=== PATIENT | male | born 1985 | race Caucasian/White ===

== ENCOUNTER 2019-05-07 09:12 | Observation (INO) | payer MEDICAID ==
[2019-05-07] MEDS ORDERED: Lactated Ringers 1,000 ML IV ONE ×3 (09:22→12:42)
[2019-05-07] MEDS ORDERED: HYDROmorphone 1 MG/ML Syringe IVPUSH ONE ×2 (09:23→10:41)
[2019-05-07] MEDS ORDERED: Ondansetron 4 MG/2 ML SDV IV ONE ×2 (09:23→15:46)
[2019-05-07] MEDS ORDERED: Sodium Chloride 0.9% 10 ML Syringe FLUSH PRN (09:24)
[2019-05-07 09:53] LABS: ANION GAP 15.8; CHLORIDE,CL 101 mmol/L (101-111); SODIUM,NA 135 mmol/L (135-145)
[2019-05-07] MEDS ORDERED: Iopamidol 612 MG/ML 50 ML SDV IVPUSH ONE (11:16)
[2019-05-07] MEDS ORDERED: Iopamidol 612 MG/ML 100 ML Bottle IVPUSH ONE (11:16)
[2019-05-07] MEDS ORDERED: Benzocaine/Menthol 20%-0.5% Spray 56 GM Canister TOP ONE (15:32)
--- NOTE | 2019-05-07 15:37 | EDM.PDOC ---
ED HPI GENERAL MEDICAL PROBLEM - General Chief Complaint: Abdominal Pain Stated Complaint: SEVERE NAUSEA AND ABDOMINAL PAIN Time Seen by Provider: 05/07/19 09:20 Source of Information: Reports: Patient - History of Present Illness INITIAL COMMENTS - FREE TEXT/NARRATIVE: Otis is a 34 year old man who presents with 2 day history of nausea and vomiting as well as abdominal pain. He reports no particular meal that seems to have started this. He does report some mild fevers and chills today. He states he has had an episode like this previously, when he developed what sounds like a severe ileus that required hospitalization for a few days. He did not require surgery at that time. He has had no hematochezia, no melena Upper Abdomen Pain Score (Numeric/FACES): 10 - Related Data Allergies Allergy/AdvReac Type Severity Reaction Status Date / Time sulfamethoxazole Allergy Rash Verified 05/07/19 09:19 [From Bactrim] trimethoprim [From Bactrim] Allergy Rash Verified 05/07/19 09:19 Home Meds: Home Meds . [No Known Home Meds] 05/07/19 [History] Past Medical History HEENT History: Reports: None Cardiovascular History: Reports: None Respiratory History: Reports: None Gastrointestinal History: Reports: None Genitourinary History: Reports: None Musculoskeletal History: Reports: Other (See Below) Other Musculoskeletal History: sharpnel right shoulder, knee SOCRATES Neurological History: Reports: None Psychiatric History: Reports: None Endocrine/Metabolic History: Reports: None Hematologic History: Reports: None Immunologic History: Reports: None Oncologic (Cancer) History: Reports: None Dermatologic History: Reports: None - Infectious Disease History Infectious Disease History: Reports: None - Past Surgical History Head Surgeries/Procedures: Reports: None Social & Family History - Family History Family Medical History: Noncontributory - Tobacco Use Smoking Status *Q: Never Smoker Second Hand Smoke Exposure: No - Caffeine Use Caffeine Use: Reports: Coffee - Recreational Drug Use Recreational Drug Use: No ED ROS GENERAL - Review of Systems Review Of Systems: Comprehensive ROS is negative, except as noted in HPI. ED EXAM, GI/ABD - Physical Exam Exam: See Below Text/Narrative:: General: Otis is a 34 year old man who is obviously uncomfortable, but in no acute distress Ororpharynx is clear, mucous membranes are very dry Lungs: clear to ascultation throughout Abdomen: mildly distended, hypoactive bowel sounds heard in all four quadrants Peripheral IV was started, he received 1 liter fluid bolus as well as 0.5 mg hydromorphone. He did recieve good relief in pain from this. Over the next few hours, received a total of 3 liters LR before he was able to have any urine output. Flat and upright abdominal xray shows large amount of stool, as well as some air fluid levels CT scan was done, did not show any signs of obstruction, no transition point Course - Vital Signs Last Recorded V/S: Last Vital Signs Temp 36.6 C 05/08/19 08:00 Pulse 69 05/08/19 08:00 Resp 18 05/08/19 08:00 BP 128/71 05/08/19 08:00 Pulse Ox 96 05/08/19 08:00 - Orders/Labs/Meds Orders: Active Orders 24 hr Category Date Time Status Peripheral IV Insertion Adult [OM.PC] Routine Oth 05/07/19 09:24 Ordered Medication Orders Acetaminophen (Tylenol) 650 mg PO Q4H PRN PRN Reason: Pain (Mild 1-3)/fever Enoxaparin Sodium (Lovenox) 40 mg SUBCUT DAILY [facility] Lactated Ringer's (Ringers, Lactated) 1,000 mls @ 100 mls/hr IV ASDIRECTED [facility] Last Admin: 05/08/19 02:40 Dose: 100 mls/hr Infusion: 05/08/19 02:40 Dose: 100 mls/hr Admin: 05/07/19 16:58 Dose: 100 mls/hr Piperacillin Sod/Tazobactam (Sod 3.375 gm/ Sodium Chloride) 100 mls @ 200 mls/ hr IV Q6H [facility] Last Infusion: 05/08/19 07:30 Dose: 200 mls/hr Admin: 05/08/19 04:48 Dose: 200 mls/hr Infusion: 05/08/19 00:22 Dose: 200 mls/hr Admin: 05/07/19 23:46 Dose: 200 mls/hr Infusion: 05/07/19 18:57 Dose: 200 mls/hr Admin: 05/07/19 18:02 Dose: 200 mls/hr Vancomycin HCl 2 gm/ Premix 400 mls @ 200 mls/hr IV Q8H [facility] Last Infusion: 05/08/19 07:31 Dose: 130 mls/hr Admin: 05/08/19 03:56 Dose: 130 mls/hr Infusion: 05/07/19 23:45 Dose: 130 mls/hr Admin: 05/07/19 20:27 Dose: 200 mls/hr Ketorolac Tromethamine (Toradol) 30 mg IVPUSH Q8H PRN PRN Reason: Pain (moderate 4-6) Stop: 05/12/19 16:37 Last Admin: 05/08/19 03:48 Dose: 30 mg Admin: 05/07/19 20:05 Dose: 30 mg Morphine Sulfate (Morphine) 2 mg IVPUSH Q2H PRN PRN Reason: Pain (severe 7-10) Last Admin: 05/07/19 16:53 Dose: 2 mg Ondansetron HCl (Zofran Odt) 4 mg PO Q4H PRN PRN Reason: nausea, able to take PO Sodium Chloride (Saline Flush) 10 ml FLUSH ASDIRECTED PRN PRN Reason: Keep Vein Open Last Admin: 05/08/19 04:45 Dose: 10 ml Admin: 05/08/19 03:50 Dose: 10 ml Admin: 05/07/19 19:52 Dose: 10 ml Vancomycin HCl (Pharmacy To Dose - Vancomycin) 1 dose .XX ASDIRECTED [facility] Zolpidem Tartrate (Ambien) 5 mg PO BEDTIME PRN PRN Reason: Sleep Labs: Laboratory Tests 05/07/19 05/07/19 05/07/19 Range/Units 09:24 09:24 09:27 WBC 13.4 H (5.0-10.0) 10^3/uL RBC 5.50 (4.6-6.2) 10^6/uL Hgb 16.1 (14.0-18.0) g/dL Hct 46.4 (40.0-54.0) % MCV 84.4 (80-100) fL MCH 29.3 (27.0-34.0) pg MCHC 34.7 (33.0-35.0) g/dL Plt Count 172 (150-450) 10^3/uL Neut % (Auto) 92.9 H (42.2-75.2) % Lymph % (Auto) 2.2 L (20.5-50.1) % Phillips % (Auto) 4.6 (2-8) % Eos % (Auto) 0.2 L (1.0-3.0) % Baso % (Auto) 0.1 (0.0-1.0) % Sodium 135 (135-145) mmol/L Potassium 3.8 (3.6-5.0) mmol/L Chloride 101 (101-111) mmol/L Carbon Dioxide 22.0 (21.0-31.0) mmol/L Anion Gap 15.8 BUN 22 H (7-18) mg/dL Creatinine 1.1 (0.6-1.3) mg/dL Est Cr Clr Drug Dosing 110.96 mL/min Estimated GFR (MDRD) > 60 BUN/Creatinine Ratio 20.00 Glucose 126 H (74-105) mg/dL Calcium 9.0 (8.4-10.2) mg/dl Magnesium (1.8-2.5) mg/dL Total Bilirubin 2.1 H (0.2-1.0) mg/dL Direct Bilirubin 0.2 (0.0-0.2) mg/dL AST 29 (10-42) IU/L ALT 46 (10-60) IU/L Alkaline Phosphatase 62 (42-121) IU/L Total Protein 7.5 (6.7-8.2) g/dl Albumin 4.5 (3.2-5.5) g/dl Globulin 3.0 Albumin/Globulin Ratio 1.50 Lipase 31 (22-51) U/L 05/07/19 Range/Units 09:27 WBC (5.0-10.0) 10^3/uL RBC (4.6-6.2) 10^6/uL Hgb (14.0-18.0) g/dL Hct (40.0-54.0) % MCV (80-100) fL MCH (27.0-34.0) pg MCHC (33.0-35.0) g/dL Plt Count (150-450) 10^3/uL Neut % (Auto) (42.2-75.2) % Lymph % (Auto) (20.5-50.1) % Phillips % (Auto) (2-8) % Eos % (Auto) (1.0-3.0) % Baso % (Auto) (0.0-1.0) % Sodium (135-145) mmol/L Potassium (3.6-5.0) mmol/L Chloride (101-111) mmol/L Carbon Dioxide (21.0-31.0) mmol/L Anion Gap BUN (7-18) mg/dL Creatinine (0.6-1.3) mg/dL Est Cr Clr Drug Dosing mL/min Estimated GFR (MDRD) BUN/Creatinine Ratio Glucose (74-105) mg/dL Calcium (8.4-10.2) mg/dl Magnesium 1.7 L (1.8-2.5) mg/dL Total Bilirubin (0.2-1.0) mg/dL Direct Bilirubin (0.0-0.2) mg/dL AST (10-42) IU/L ALT (10-60) IU/L Alkaline Phosphatase (42-121) IU/L Total Protein (6.7-8.2) g/dl Albumin (3.2-5.5) g/dl Globulin Albumin/Globulin Ratio Lipase (22-51) U/L Meds: Medications Generic Name Dose Route Start Last Admin Trade Name Freq PRN Reason Stop Dose Admin Acetaminophen 650 mg 05/07/19 16:04 Tylenol PO Q4H PRN Pain (Mild 1-3)/fever Enoxaparin Sodium 40 mg 05/08/19 09:00 Lovenox SUBCUT DAILY [facility] Lactated Ringer's 1,000 mls @ 100 mls/hr 05/07/19 16:15 05/08/19 02:40 Ringers, Lactated IV 100 mls/hr ASDIRECTED [facility] Administration Piperacillin Sod/Tazobactam 100 mls @ 200 mls/hr 05/07/19 17:00 05/08/19 07: 30 Sod 3.375 gm/ Sodium Chloride IV Infused Q6H [facility] Infusion Vancomycin HCl 2 gm/ Premix 400 mls @ 200 mls/hr 05/07/19 20:00 05/08/19 07: 31 IV Infused Q8H [facility] Infusion Ketorolac Tromethamine 30 mg 05/07/19 16:37 05/08/19 03:48 Toradol IVPUSH 05/12/19 16:37 30 mg Q8H PRN Administration Pain (moderate 4-6) Morphine Sulfate 2 mg 05/07/19 16:38 05/07/19 16:53 Morphine IVPUSH 2 mg Q2H PRN Administration Pain (severe 7-10) Ondansetron HCl 4 mg 05/07/19 16:04 Zofran Odt PO Q4H PRN nausea, able to take PO Sodium Chloride 10 ml 05/07/19 16:04 05/08/19 04:45 Saline Flush FLUSH 10 ml ASDIRECTED PRN Administration Keep Vein Open Vancomycin HCl 1 dose 05/07/19 18:45 Pharmacy To Dose - Vancomycin .XX ASDIRECTED [facility] Zolpidem Tartrate 5 mg 05/07/19 16:04 Ambien PO BEDTIME PRN Sleep Discontinued Medications Generic Name Dose Route Start Last Admin Trade Name Freq PRN Reason Stop Dose Admin Benzocaine/Menthol 0 gm 05/07/19 15:32 05/07/19 16:40 Dermoplast Pain Relief Astatula TOP 05/07/19 15:33 Not Given ONETIME ONE Hydromorphone HCl 0.5 mg 05/07/19 09:23 05/07/19 09:31 Dilaudid IVPUSH 05/07/19 09:24 0.5 mg ONETIME ONE Administration Hydromorphone HCl 0.5 mg 05/07/19 10:41 05/07/19 11:13 Dilaudid IVPUSH 05/07/19 10:42 0.5 mg ONETIME ONE Administration Lactated Ringer's 1,000 mls @ 999 mls/hr 05/07/19 09:22 05/07/19 10:39 Ringers, Lactated IV 05/07/19 10:22 Infused .BOLUS ONE Infusion Lactated Ringer's 1,000 mls @ 999 mls/hr 05/07/19 10:41 05/07/19 11:13 Ringers, Lactated IV 05/07/19 11:41 999 mls/hr .BOLUS ONE Administration Lactated Ringer's 1,000 mls @ 999 mls/hr 05/07/19 12:42 05/07/19 12:46 Ringers, Lactated IV 05/07/19 13:42 999 mls/hr .BOLUS ONE Administration Potassium Chloride 10 meq/ 0 mls @ 100 mls/hr 05/07/19 16:49 05/07/19 19:45 Premix IV 05/07/19 16:50 Not Given ONETIME ONE Potassium Chloride 10 meq/ 100 mls @ 100 mls/hr 05/07/19 18:00 05/07/19 22:04 Premix IV 05/07/19 18:59 Infused ONETIME ONE Infusion Potassium Chloride 10 meq/ 100 mls @ 100 mls/hr 05/07/19 20:00 05/07/19 22:05 Premix IV 05/07/19 20:59 Infused ONETIME ONE Infusion Magnesium Sulfate/Dextrose 2 200 mls @ 100 mls/hr 05/07/19 17:07 05/07/19 19: 51 gm/ Premix IV 05/07/19 19:06 Infused ONETIME ONE Infusion Iopamidol 100 ml 05/07/19 11:16 05/07/19 11:19 Isovue-300 (61%) IVPUSH 05/07/19 11:17 100 ml ONETIME ONE Administration Iopamidol 50 ml 05/07/19 11:16 05/07/19 11:19 Isovue-300 (61%) IVPUSH 05/07/19 11:17 25 ml ONETIME ONE Administration Ondansetron HCl 4 mg 05/07/19 09:23 05/07/19 09:32 Zofran IV 05/07/19 09:24 4 mg ONETIME ONE Administration Ondansetron HCl 4 mg 05/07/19 15:46 05/07/19 16:56 Zofran IV 05/07/19 15:47 4 mg ONETIME ONE Administration Sodium Chloride 10 ml 05/07/19 09:24 05/07/19 09:37 Saline Flush FLUSH 10 ml ASDIRECTED PRN Administration Keep Vein Open Departure - Departure Time of Disposition: 15:37 Disposition: Admitted As Inpatient 64 Clinical Impression: Ileus - Discharge Information *PRESCRIPTION DRUG MONITORING PROGRAM REVIEWED*: Not Applicable *COPY OF PRESCRIPTION DRUG MONITORING REPORT IN PATIENT MARYANA: Not Applicable Sepsis Event Note - Evaluation Sepsis Screening Result: No Definite Risk - Focused Exam Date Exam was Performed: 05/08/19 Time Exam was Performed: 08:40 - Problem List & Annotations (1) Ileus SNOMED Code(s): 752707627 Code(s): K56.7 - ILEUS, UNSPECIFIED Status: Acute Current Visit: No - Problem List Review Problem List Initiated/Reviewed/Updated: Yes - My Orders Last 24 Hours: My Active Orders 05/07/19 09:24 Peripheral IV Insertion Adult [OM.PC] Routine - Assessment/Plan Last 24 Hours: My Active Orders 05/07/19 09:24 Peripheral IV Insertion Adult [OM.PC] Routine Plan: Plan: 1. I spoke with the hospitalist on duty today here at [facility], he agreed to admit the patient for further evaluation and treatment. He recommended NG tube placement, that was done here in the ED with immediate return.
[2019-05-07] MEDS ORDERED: Acetaminophen 325 MG Tab PO PRN (16:04)
[2019-05-07] MEDS ORDERED: Ondansetron 4 MG Tab.DIS PO PRN (16:04)
--- NOTE | 2019-05-07 16:21 | PCM.HP ---
H&P History of Present Illness - General Date of Service: 05/07/19 Admit Problem/Dx: Admission Diagnosis/Problem Admission Diagnosis/Problem Ileus Source of Information: Patient History Limitations: Reports: No Limitations - History of Present Illness Initial Comments - Free Text/Narative: Patient is a 34 y.o. male with no significant past medical history who presented with acute onset intractable nausea and emesis, associated with abdominal pain and one episode of loose stools. Symptoms started last midnight. Patient was at [id number] yesterday where he had dinner ( including salads). No other known sick contacts, no one else at the burial has reported sick. He denies fever, hematemesis or hematochezia. In ED, labs were unremarkable except for mild leukocytosis of 13.4 and bilirubin of 2.1. Vitals wnl except for tachycardia at 100. Abdominal XR and CT revealed stool burden but no obstruction or transition point. Onset of Symptoms: Reports: Today, Sudden Duration of Symptoms: Reports: Hour(s):, Getting Worse Location: Reports: Abdomen Quality: Reports: Dull Severity: Moderate Upper Abdomen Pain Score (Numeric/FACES): 5 - Related Data Allergies/Adverse Reactions: Allergies Allergy/AdvReac Type Severity Reaction Status Date / Time sulfamethoxazole Allergy Rash Verified 05/07/19 09:19 [From Bactrim] trimethoprim [From Bactrim] Allergy Rash Verified 05/07/19 09:19 Home Medications: Home Meds . [No Known Home Meds] 05/07/19 [History] Past Medical History HEENT History: Reports: None Cardiovascular History: Reports: None Respiratory History: Reports: None Gastrointestinal History: Reports: None Genitourinary History: Reports: None Musculoskeletal History: Reports: Other (See Below) Other Musculoskeletal History: sharpnel right shoulder, knee SOCRATES Neurological History: Reports: None Psychiatric History: Reports: None Endocrine/Metabolic History: Reports: None Hematologic History: Reports: None Immunologic History: Reports: None Oncologic (Cancer) History: Reports: None Dermatologic History: Reports: None - Infectious Disease History Infectious Disease History: Reports: None - Past Surgical History Head Surgeries/Procedures: Reports: None Social & Family History - Family History Family Medical History: Noncontributory - Tobacco Use Smoking Status *Q: Never Smoker Second Hand Smoke Exposure: No - Caffeine Use Caffeine Use: Reports: Coffee - Recreational Drug Use Recreational Drug Use: No H&P Review of Systems - Review of Systems: Review Of Systems: See Below General: Reports: No Symptoms HEENT: Reports: No Symptoms Pulmonary: Reports: No Symptoms Cardiovascular: Reports: No Symptoms Gastrointestinal: Reports: Abdominal Pain, Diarrhea, Nausea, Vomiting Genitourinary: Reports: No Symptoms Musculoskeletal: Reports: No Symptoms Skin: Reports: No Symptoms Psychiatric: Reports: No Symptoms Neurological: Reports: No Symptoms Hematologic/Lymphatic: Reports: No Symptoms Immunologic: Reports: No Symptoms Exam - Exam Exam: See Below - Vital Signs Vital Signs: Last Vital Signs Temp 98.7 F 05/07/19 09:19 Pulse 100 05/07/19 09:19 Resp 18 05/07/19 09:19 BP 142/82 H 05/07/19 09:19 Pulse Ox 99 05/07/19 09:19 Weight: 296 lb - Exam General: Alert, Oriented, 4 HEENT: PERRLA, Hearing Intact, Mucosa Moist & [place], Nares Patent, Normal Nasal Septum, Posterior Pharynx Clear, Conjunctiva Clear, EOMI, EACs Clear, TMs Clear Neck: Supple, Trachea Midline, 2 Lungs: Clear to Auscultation, Normal Respiratory Effort Cardiovascular: Regular Rate, Regular Rhythm GI/Abdominal Exam: No Organomegaly, No Distention, Tender, Abnormal Bowel Sounds (Absent bowel sounds) (Male) Exam: Deferred Rectal (Males) Exam: Deferred Back Exam: Normal Inspection, Full Range of Motion, NT Extremities: Normal Inspection, Normal Range of Motion, Non-Tender, No Pedal Edema, Normal Capillary Refill Skin: Warm, Dry, Intact Neurological: Cranial Nerves Intact, Reflexes Equal Bilateral Neuro Extensive - Mental Status: Alert, Oriented x3, Normal Mood/Affect, Normal Cognition Neuro Extensive - Motor, Sensory, Reflexes: CN II-XII Intact, Normal Gait, Normal Reflexes Psychiatric: Alert, Normal Affect, Normal Mood - Patient Data Lab Results Last 24 hrs: Laboratory Results - last 24 hr 05/07/19 05/07/19 05/07/19 Range/Units 09:24 09:24 09:27 WBC 13.4 H (5.0-10.0) 10^3/uL RBC 5.50 (4.6-6.2) 10^6/uL Hgb 16.1 (14.0-18.0) g/dL Hct 46.4 (40.0-54.0) % MCV 84.4 (80-100) fL MCH 29.3 (27.0-34.0) pg MCHC 34.7 (33.0-35.0) g/dL Plt Count 172 (150-450) 10^3/uL Neut % (Auto) 92.9 H (42.2-75.2) % Lymph % (Auto) 2.2 L (20.5-50.1) % Kimble % (Auto) 4.6 (2-8) % Eos % (Auto) 0.2 L (1.0-3.0) % Baso % (Auto) 0.1 (0.0-1.0) % Sodium 135 (135-145) mmol/L Potassium 3.8 (3.6-5.0) mmol/L Chloride 101 (101-111) mmol/L Carbon Dioxide 22.0 (21.0-31.0) mmol/L Anion Gap 15.8 BUN 22 H (7-18) mg/dL Creatinine 1.1 (0.6-1.3) mg/dL Est Cr Clr Drug Dosing 110.96 mL/min Estimated GFR (MDRD) > 60 BUN/Creatinine Ratio 20.00 Glucose 126 H (74-105) mg/dL Calcium 9.0 (8.4-10.2) mg/dl Total Bilirubin 2.1 H (0.2-1.0) mg/dL Direct Bilirubin 0.2 (0.0-0.2) mg/dL AST 29 (10-42) IU/L ALT 46 (10-60) IU/L Alkaline Phosphatase 62 (42-121) IU/L Total Protein 7.5 (6.7-8.2) g/dl Albumin 4.5 (3.2-5.5) g/dl Globulin 3.0 Albumin/Globulin Ratio 1.50 Lipase 31 (22-51) U/L Result Diagrams: 05/07/19 09:24 05/07/19 09:24 Problem List Initiated/Reviewed/Updated: Yes Orders Last 24hrs: Active Orders 24 hr Category Date Time Status Admission Diagnosis [ADT] Urgent ADT 05/07/19 15:52 Ordered Admission Status [Patient Status] [ADT] Routine ADT 05/07/19 15:52 Active Patient Status [ADT] Routine ADT 05/07/19 16:10 Ordered Intake and Output [RC] QSHIFT Care 05/07/19 16:11 Ordered Oxygen Therapy [RC] PRN Care 05/07/19 16:10 Ordered Peripheral IV Care [RC] . DIRECTED Care 05/07/19 09:24 Active Peripheral IV Care [RC] . DIRECTED Care 05/07/19 16:13 Ordered Up ad Luann [RC] ASDIRECTED Care 05/07/19 16:04 Ordered VTE/DVT Education [RC] PER UNIT ROUTINE Care 05/07/19 16:10 Ordered Vital Signs [RC] Q4H Care 05/07/19 16:10 Ordered Nothing per Oral Now Diet [DIET] Diet 05/07/19 Dinner Ordered CBC W/O DIFF,HEMOGRAM [HEME] AM Lab 05/08/19 05:11 Ordered COMPREHENSIVE METABOLIC PN,CMP [CHEM] AM Lab 05/08/19 05:11 Ordered Acetaminophen [Tylenol] Med 05/07/19 16:04 Ordered 650 mg PO Q4H PRN Enoxaparin [Lovenox] Med 05/08/19 09:00 Ordered 40 mg SUBCUT DAILY Lactated Ringers [Ringers, Lactated] 1,000 ml Med 05/07/19 16:15 Ordered IV ASDIRECTED Ondansetron [Zofran ODT] Med 05/07/19 16:04 Ordered 4 mg PO Q4H PRN Sodium Chloride 0.9% [Saline Flush] Med 05/07/19 09:24 Active 10 ml FLUSH ASDIRECTED PRN Sodium Chloride 0.9% [Saline Flush] Med 05/07/19 16:04 Ordered 10 ml FLUSH ASDIRECTED PRN Zolpidem [Ambien] Med 05/07/19 16:04 Ordered 5 mg PO BEDTIME PRN Nasogastric Orogastric Tube Insertion [OM.PC] Urgent Oth 05/07/19 16:11 Ordered Peripheral IV Insertion Adult [OM.PC] Routine Oth 05/07/19 09:24 Ordered Peripheral IV Insertion Adult [OM.PC] Routine Oth 05/07/19 16:04 Ordered Saline Lock Insert [OM.PC] Routine Oth 05/07/19 16:04 Ordered Resuscitation Status Routine Resus Stat 05/07/19 16:04 Ordered Medication Orders Sodium Chloride (Saline Flush) 10 ml FLUSH ASDIRECTED PRN PRN Reason: Keep Vein Open Last Admin: 05/07/19 09:37 Dose: 10 ml Assessment/Plan Comment:: Acute Ileus Probable gastroenteritis Intractable emesis, nausea, abdominal pain and en episode of loose stool. CT and XR of abdomen show moderate stool burden. Suspect food poisoning, viral gastroenteritis or severe constipation. - NPO - Pass NGT to LIS - MIVF LR at 100 cc/h - Monitor and replace K>4 and Mg>2 - Serial abdominal exams Metabolic acidosis Bicarb of 22 incontext of emesis with bicarb loss from GI tract. - repeat tomorrow Leukocytosis Wbc of 13.4. Due to dehydration. No signs of sepsis. - repeat tomorrow Elevated bilirubin Tbil of 2.1. Likely due to dehydration with emesis. - repeat tomorrow
[2019-05-07] MEDS ORDERED: Potassium Chloride 10 MEQ in Premix Bag 2 BAG IV ONE (16:49)
[2019-05-07] MEDS: Morphine 2 MG/ML Syringe IVPUSH PRN (16:53)
[2019-05-07] MEDS: Lactated Ringers 1,000 ML IV SCH (16:58)
[2019-05-07] MEDS ORDERED: Magnesium Sulfate/D5W 2 GM in Premix Bag 1 BAG IV ONE (17:07)
[2019-05-07] MEDS ORDERED: Potassium Chloride 10 MEQ in Premix Bag 1 BAG IV ONE ×2 (18:00→20:00)
[2019-05-07] MEDS: Piperacillin/Tazobactam 3.375 GM in Sodium Chloride 0.9% 100 ML IV SCH ×2 (18:02→23:46)
[2019-05-07] MEDS: Sodium Chloride 0.9% 10 ML Syringe FLUSH PRN (19:52)
[2019-05-07] MEDS: Ketorolac 30 MG/ML SDV IVPUSH PRN (20:05)
[2019-05-07] MEDS: WATER FOR INJ IV SCH (20:27)
[2019-05-07] MEDS: VANCOMYCIN IV SCH (20:27)
[2019-05-08] MEDS: Lactated Ringers 1,000 ML IV SCH ×2 (02:40→20:42)
[2019-05-08] MEDS: Ketorolac 30 MG/ML SDV IVPUSH PRN ×3 (03:48→21:18)
[2019-05-08] MEDS: Sodium Chloride 0.9% 10 ML Syringe FLUSH PRN ×4 (03:50→12:17)
[2019-05-08] MEDS: WATER FOR INJ IV SCH ×3 (03:56→20:33)
[2019-05-08] MEDS: VANCOMYCIN IV SCH ×3 (03:56→20:33)
[2019-05-08] MEDS: Piperacillin/Tazobactam 3.375 GM in Sodium Chloride 0.9% 100 ML IV SCH ×3 (04:48→17:21)
[2019-05-08 07:02] LABS: ANION GAP 10.9; CHLORIDE,CL 102 mmol/L (101-111); SODIUM,NA 135 mmol/L (135-145)
[2019-05-08] MEDS: Enoxaparin 40 MG/0.4 ML Syringe SUBCUT SCH (09:07)
--- NOTE | 2019-05-08 13:09 | PCM.PN ---
- General Info Date of Service: 05/08/19 Admission Dx/Problem (Free Text): Admission Diagnosis/Problem Admission Diagnosis/Problem Ileus Subjective Update: Patient seen and examined this morning. Abdominal pain improving. Has passed gas x1 today. No BM yet. Fever down trending. Functional Status: Reports: Pain Controlled - Review of Systems General: Reports: No Symptoms HEENT: Reports: No Symptoms Pulmonary: Reports: No Symptoms Cardiovascular: Reports: No Symptoms Gastrointestinal: Reports: Abdominal Pain Genitourinary: Reports: No Symptoms Musculoskeletal: Reports: Joint Pain Skin: Reports: No Symptoms Neurological: Reports: No Symptoms Psychiatric: Reports: No Symptoms - Patient Data Vitals - Most Recent: Last Vital Signs Temp 99.3 F 05/08/19 12:00 Pulse 70 05/08/19 12:00 Resp 17 05/08/19 12:00 BP 128/72 05/08/19 12:00 Pulse Ox 96 05/08/19 12:00 Weight - Most Recent: 296 lb I&O - Last 24 Hours: Intake & Output 05/07/19 05/08/19 05/08/19 22:59 06:59 14:59 Intake Total 100 1603 400 Output Total 700 850 Balance -600 753 400 Lab Results Last 24 Hours: Laboratory Results - last 24 hr 05/07/19 05/07/19 05/08/19 Range/Units 09:27 18:57 06:13 WBC 5.4 (5.0-10.0) 10^3/uL RBC 4.54 L (4.6-6.2) 10^6/uL Hgb 13.4 L D (14.0-18.0) g/dL Hct 39.7 L (40.0-54.0) % MCV 87.4 D (80-100) fL MCH 29.5 (27.0-34.0) pg MCHC 33.8 (33.0-35.0) g/dL Plt Count 140 L (150-450) 10^3/uL Sodium (135-145) mmol/L Potassium (3.6-5.0) mmol/L Chloride (101-111) mmol/L Carbon Dioxide (21.0-31.0) mmol/L Anion Gap BUN (7-18) mg/dL Creatinine (0.6-1.3) mg/dL Est Cr Clr Drug Dosing mL/min Estimated GFR (MDRD) BUN/Creatinine Ratio Glucose (74-105) mg/dL Lactic Acid 1.1 (0.5-2.0) mmol/L Calcium (8.4-10.2) mg/dl Magnesium 1.7 L (1.8-2.5) mg/dL Total Bilirubin (0.2-1.0) mg/dL AST (10-42) IU/L ALT (10-60) IU/L Alkaline Phosphatase (42-121) IU/L Total Protein (6.7-8.2) g/dl Albumin (3.2-5.5) g/dl Globulin Albumin/Globulin Ratio Urine Color (YELLOW) Urine Appearance (CLEAR) Urine pH (5.0-9.0) Ur Specific [place] (1.005-1.030) Urine Protein (NEGATIVE) Urine Glucose (UA) (NEGATIVE) Urine Ketones (NEGATIVE) Urine Occult Blood (NEGATIVE) Urine Nitrite (NEGATIVE) Urine Bilirubin (NEGATIVE) Urine Urobilinogen (0.2-1.0) mg/dL Ur Leukocyte Esterase (NEGATIVE) Urine RBC /HPF Urine WBC (0-5/HPF) /HPF Ur Epithelial Cells (NOT SEEN) /HPF Urine Bacteria (0-FEW/HPF) /HPF Urine Mucus (NOT SEEN) /LPF 05/08/19 05/08/19 05/08/19 Range/Units 06:13 06:13 11:50 WBC (5.0-10.0) 10^3/uL RBC (4.6-6.2) 10^6/uL Hgb (14.0-18.0) g/dL Hct (40.0-54.0) % MCV (80-100) fL MCH (27.0-34.0) pg MCHC (33.0-35.0) g/dL Plt Count (150-450) 10^3/uL Sodium 135 (135-145) mmol/L Potassium 3.9 (3.6-5.0) mmol/L Chloride 102 (101-111) mmol/L Carbon Dioxide 26.0 (21.0-31.0) mmol/L Anion Gap 10.9 BUN 17 (7-18) mg/dL Creatinine 1.2 (0.6-1.3) mg/dL Est Cr Clr Drug Dosing 101.71 mL/min Estimated GFR (MDRD) > 60 BUN/Creatinine Ratio 14.16 Glucose 106 H (74-105) mg/dL Lactic Acid (0.5-2.0) mmol/L Calcium 8.1 L (8.4-10.2) mg/dl Magnesium 2.1 (1.8-2.5) mg/dL Total Bilirubin 2.1 H (0.2-1.0) mg/dL AST 16 (10-42) IU/L ALT 28 (10-60) IU/L Alkaline Phosphatase 56 (42-121) IU/L Total Protein 5.9 L (6.7-8.2) g/dl Albumin 3.5 (3.2-5.5) g/dl Globulin 2.4 Albumin/Globulin Ratio 1.46 Urine Color Yellow (YELLOW) Urine Appearance Clear (CLEAR) Urine pH 6.0 (5.0-9.0) Ur Specific [place] 1.020 (1.005-1.030) Urine Protein Negative (NEGATIVE) Urine Glucose (UA) Negative (NEGATIVE) Urine Ketones Negative (NEGATIVE) Urine Occult Blood Negative (NEGATIVE) Urine Nitrite Negative (NEGATIVE) Urine Bilirubin Negative (NEGATIVE) Urine Urobilinogen 1.0 (0.2-1.0) mg/dL Ur Leukocyte Esterase Negative (NEGATIVE) Urine RBC Not seen /HPF Urine WBC 0-5 (0-5/HPF) /HPF Ur Epithelial Cells Rare (NOT SEEN) /HPF Urine Bacteria Not seen (0-FEW/HPF) /HPF Urine Mucus Not seen (NOT SEEN) /LPF Med Orders - Current: Current Medications Acetaminophen (Tylenol) 650 mg PO Q4H PRN PRN Reason: Pain (Mild 1-3)/fever Enoxaparin Sodium (Lovenox) 40 mg SUBCUT DAILY [facility] Last Admin: 05/08/19 09:07 Dose: 40 mg Lactated Ringer's (Ringers, Lactated) 1,000 mls @ 100 mls/hr IV ASDIRECTED [facility] Last Admin: 05/08/19 02:40 Dose: 100 mls/hr Piperacillin Sod/Tazobactam (Sod 3.375 gm/ Sodium Chloride) 100 mls @ 200 mls/ hr IV Q6H [facility] Last Admin: 05/08/19 11:37 Dose: 200 mls/hr Vancomycin HCl 2 gm/ Premix 400 mls @ 200 mls/hr IV Q8H [facility] Last Admin: 05/08/19 12:17 Dose: 130 mls/hr Ketorolac Tromethamine (Toradol) 30 mg IVPUSH Q8H PRN PRN Reason: Pain (moderate 4-6) Stop: 05/12/19 16:37 Last Admin: 05/08/19 11:46 Dose: 30 mg Morphine Sulfate (Morphine) 2 mg IVPUSH Q2H PRN PRN Reason: Pain (severe 7-10) Last Admin: 05/07/19 16:53 Dose: 2 mg Ondansetron HCl (Zofran Odt) 4 mg PO Q4H PRN PRN Reason: nausea, able to take PO Sodium Chloride (Saline Flush) 10 ml FLUSH ASDIRECTED PRN PRN Reason: Keep Vein Open Last Admin: 05/08/19 12:17 Dose: 10 ml Vancomycin HCl (Pharmacy To Dose - Vancomycin) 1 dose .XX ASDIRECTED [facility] Zolpidem Tartrate (Ambien) 5 mg PO BEDTIME PRN PRN Reason: Sleep Discontinued Medications Benzocaine/Menthol (Dermoplast Pain Relief [place]) 0 gm TOP ONETIME ONE Stop: 05/07/19 15:33 Last Admin: 05/07/19 16:40 Dose: Not Given Hydromorphone HCl (Dilaudid) 0.5 mg IVPUSH ONETIME ONE Stop: 05/07/19 09:24 Last Admin: 05/07/19 09:31 Dose: 0.5 mg Hydromorphone HCl (Dilaudid) 0.5 mg IVPUSH ONETIME ONE Stop: 05/07/19 10:42 Last Admin: 05/07/19 11:13 Dose: 0.5 mg Lactated Ringer's (Ringers, Lactated) 1,000 mls @ 999 mls/hr IV .BOLUS ONE Stop: 05/07/19 10:22 Last Infusion: 05/07/19 10:39 Dose: Infused Lactated Ringer's (Ringers, Lactated) 1,000 mls @ 999 mls/hr IV .BOLUS ONE Stop: 05/07/19 11:41 Last Admin: 05/07/19 11:13 Dose: 999 mls/hr Lactated Ringer's (Ringers, Lactated) 1,000 mls @ 999 mls/hr IV .BOLUS ONE Stop: 05/07/19 13:42 Last Admin: 05/07/19 12:46 Dose: 999 mls/hr Potassium Chloride 10 meq/ (Premix) 0 mls @ 100 mls/hr IV ONETIME ONE Stop: 05/07/19 16:50 Last Admin: 05/07/19 19:45 Dose: Not Given Potassium Chloride 10 meq/ (Premix) 100 mls @ 100 mls/hr IV ONETIME ONE Stop: 05/07/19 18:59 Last Infusion: 05/07/19 22:04 Dose: Infused Potassium Chloride 10 meq/ (Premix) 100 mls @ 100 mls/hr IV ONETIME ONE Stop: 05/07/19 20:59 Last Infusion: 05/07/19 22:05 Dose: Infused Magnesium Sulfate/Dextrose 2 (gm/ Premix) 200 mls @ 100 mls/hr IV ONETIME ONE Stop: 05/07/19 19:06 Last Infusion: 05/07/19 19:51 Dose: Infused Iopamidol (Isovue-300 (61%)) 100 ml IVPUSH ONETIME ONE Stop: 05/07/19 11:17 Last Admin: 05/07/19 11:19 Dose: 100 ml Iopamidol (Isovue-300 (61%)) 50 ml IVPUSH ONETIME ONE Stop: 05/07/19 11:17 Last Admin: 05/07/19 11:19 Dose: 25 ml Ondansetron HCl (Zofran) 4 mg IV ONETIME ONE Stop: 05/07/19 09:24 Last Admin: 05/07/19 09:32 Dose: 4 mg Ondansetron HCl (Zofran) 4 mg IV ONETIME ONE Stop: 05/07/19 15:47 Last Admin: 05/07/19 16:56 Dose: 4 mg Sodium Chloride (Saline Flush) 10 ml FLUSH ASDIRECTED PRN PRN Reason: Keep Vein Open Last Admin: 05/07/19 09:37 Dose: 10 ml - Exam General: Alert, Oriented HEENT: Pupils Equal, Pupils Reactive, EOMI, Mucous Membr. Moist/[place] Neck: Supple Lungs: Clear to Auscultation, Normal Respiratory Effort Cardiovascular: Regular Rate, Regular Rhythm GI/Abdominal Exam: Normal Bowel Sounds, Soft, No Organomegaly, No Distention, No Abnormal Bruit, No Mass, Pelvis Stable, Tender (Male) Exam: Deferred Back Exam: Normal Inspection, Full Range of Motion Extremities: Normal Inspection, Normal Range of Motion, Non-Tender, No Pedal Edema, Normal Capillary Refill Skin: Warm, Dry, Intact Neurological: No New Focal Deficit Psy/Mental Status: Alert, Normal Affect, Normal Mood Sepsis Event Note - Evaluation Sepsis Screening Result: No Definite Risk - Focused Exam Vital Signs: Vital Signs Temp Pulse Resp BP Pulse Ox 05/08/19 12:00 99.3 F 70 17 128/72 96 05/08/19 08:00 98 F 69 18 128/71 96 05/08/19 04:00 99 F 82 20 128/68 94 L Date Exam was Performed: 05/08/19 Time Exam was Performed: 13:04 - Problem List Review Problem List Initiated/Reviewed/Updated: Yes - My Orders Last 24 Hours: My Active Orders 05/07/19 16:04 Up ad Luann [RC] ASDIRECTED Acetaminophen [Tylenol] 650 mg PO Q4H PRN Ondansetron [Zofran ODT] 4 mg PO Q4H PRN Sodium Chloride 0.9% [Saline Flush] 10 ml FLUSH ASDIRECTED PRN Zolpidem [Ambien] 5 mg PO BEDTIME PRN Peripheral IV Insertion Adult [OM.PC] Routine Saline Lock Insert [OM.PC] Routine Resuscitation Status Routine 05/07/19 16:10 Patient Status [ADT] Routine Oxygen Therapy [RC] .PRN VTE/DVT Education [RC] PER UNIT ROUTINE Vital Signs [RC] 00,04,08,12,,05/07/19 16:11 Intake and Output [RC] QSHIFT Nasogastric Orogastric Tube Insertion [OM.PC] Urgent 05/07/19 16:13 Peripheral IV Care [RC] 05/07/19 16:15 Lactated Ringers [Ringers, Lactated] 1,000 ml IV ASDIRECTED 05/07/19 16:37 Ketorolac [Toradol] 30 mg IVPUSH Q8H PRN 05/07/19 16:38 Morphine 2 mg IVPUSH Q2H PRN 05/07/19 16:41 NG [Gastrointestinal Tube Mgmt] [RC] 05/07/19 17:00 Piperacillin/Tazobactam [Zosyn] 3.375 gm Sodium Chloride 0.9% [Normal Saline] 100 ml IV Q6H 05/07/19 17:05 Blood Culture x2 Reflex Set [OM.PC] Stat 05/07/19 17:30 CULTURE BLOOD [BC] Stat 05/07/19 17:37 CULTURE BLOOD [BC] Stat 05/07/19 18:45 Pharmacy to Dose - Vancomycin 1 dose .XX ASDIRECTED 05/07/19 20:00 Vancomycin/Water for INJ (PEG) [Vancomycin 1 GM/200 ML Premix] 2 gm Premix Bag 2 bag IV Q8H 05/07/19 Dinner Nothing per Oral Now Diet [DIET] 05/08/19 09:00 Enoxaparin [Lovenox] 40 mg SUBCUT DAILY 05/09/19 04:30 CREATININE W/GFR [CHEM] ONETIME VANCOMYCIN TROUGH [CHEM] Timed - Plan Plan:: Acute Ileus Probable gastroenteritis Intractable emesis, nausea, abdominal pain and en episode of loose stool. CT and XR of abdomen show moderate stool burden. Suspect food poisoning, viral gastroenteritis or severe constipation. - Continue NPO - Continue NGT to LIS - Continue MIVF LR at 100 cc/h - Monitor and replace K>4 and Mg>2 - Serial abdominal exams as needed - Passed gas today. No BM. Metabolic acidosis Bicarb of 22 in context of emesis with bicarb loss from GI tract. -Resolved Leukocytosis Wbc of 13.4. Due to dehydration. No signs of sepsis. - Resolved Elevated bilirubin Tbil of 2.1. Likely due to dehydration with emesis. - repeat tomorrow
[2019-05-09 00:07] LABS: ANION GAP 11.7; CHLORIDE,CL 104 mmol/L (101-111); SODIUM,NA 138 mmol/L (135-145)
[2019-05-09] MEDS: Piperacillin/Tazobactam 3.375 GM in Sodium Chloride 0.9% 100 ML IV SCH ×5 (01:29→23:31)
[2019-05-09] MEDS: Morphine 2 MG/ML Syringe IVPUSH PRN (01:48)
[2019-05-09 04:43] LABS: ANION GAP 9.9; CHLORIDE,CL 106 mmol/L (101-111); SODIUM,NA 139 mmol/L (135-145)
[2019-05-09] MEDS: VANCOMYCIN IV SCH (05:19)
[2019-05-09] MEDS: WATER FOR INJ IV SCH (05:19)
--- NOTE | 2019-05-09 10:13 | PCM.PN ---
- General Info Date of Service: 05/09/19 Admission Dx/Problem (Free Text): Admission Diagnosis/Problem Admission Diagnosis/Problem Ileus Subjective Update: Patient seen and examined this morning. Had worse abdominal pain last night. LA , CBC and BMP were unremarkable. This morning, patient the pain is due to irritation from the NGT. Has passed gas x1 today. No BM yet. Afebrile overnight. Functional Status: Reports: Pain Controlled - Review of Systems General: Reports: No Symptoms HEENT: Reports: No Symptoms Pulmonary: Reports: No Symptoms Cardiovascular: Reports: No Symptoms Gastrointestinal: Reports: Abdominal Pain, Constipation Genitourinary: Reports: No Symptoms Musculoskeletal: Reports: No Symptoms Skin: Reports: No Symptoms Neurological: Reports: No Symptoms Psychiatric: Reports: No Symptoms - Patient Data Vitals - Most Recent: Last Vital Signs Temp 98.9 F 05/09/19 08:00 Pulse 73 05/09/19 08:00 Resp 16 05/09/19 08:00 BP 150/76 H 05/09/19 08:00 Pulse Ox 96 05/09/19 08:00 Weight - Most Recent: 296 lb I&O - Last 24 Hours: Intake & Output 05/08/19 05/09/19 05/09/19 22:59 06:59 14:59 Intake Total 102 Output Total 1350 650 Balance -1350 -548 Lab Results Last 24 Hours: Laboratory Results - last 24 hr 05/08/19 05/08/19 05/08/19 Range/Units 06:13 11:50 23:39 WBC (5.0-10.0) 10^3/uL RBC (4.6-6.2) 10^6/uL Hgb (14.0-18.0) g/dL Hct (40.0-54.0) % MCV (80-100) fL MCH (27.0-34.0) pg MCHC (33.0-35.0) g/dL Plt Count (150-450) 10^3/uL Sodium (135-145) mmol/L Potassium (3.6-5.0) mmol/L Chloride (101-111) mmol/L Carbon Dioxide (21.0-31.0) mmol/L Anion Gap BUN (7-18) mg/dL Creatinine (0.6-1.3) mg/dL Est Cr Clr Drug Dosing mL/min Estimated GFR (MDRD) BUN/Creatinine Ratio Glucose (74-105) mg/dL Lactic Acid 0.9 (0.5-2.0) mmol/L Calcium (8.4-10.2) mg/dl Phosphorus (2.5-4.6) mg/dL Magnesium 2.1 (1.8-2.5) mg/dL Total Bilirubin (0.2-1.0) mg/dL AST (10-42) IU/L ALT (10-60) IU/L Alkaline Phosphatase (42-121) IU/L Total Protein (6.7-8.2) g/dl Albumin (3.2-5.5) g/dl Globulin Albumin/Globulin Ratio Urine Color Yellow (YELLOW) Urine Appearance Clear (CLEAR) Urine pH 6.0 (5.0-9.0) Ur Specific [place] 1.020 (1.005-1.030) Urine Protein Negative (NEGATIVE) Urine Glucose (UA) Negative (NEGATIVE) Urine Ketones Negative (NEGATIVE) Urine Occult Blood Negative (NEGATIVE) Urine Nitrite Negative (NEGATIVE) Urine Bilirubin Negative (NEGATIVE) Urine Urobilinogen 1.0 (0.2-1.0) mg/dL Ur Leukocyte Esterase Negative (NEGATIVE) Urine RBC Not seen /HPF Urine WBC 0-5 (0-5/HPF) /HPF Ur Epithelial Cells Rare (NOT SEEN) /HPF Urine Bacteria Not seen (0-FEW/HPF) /HPF Urine Mucus Not seen (NOT SEEN) /LPF Vancomycin Trough (10-15) ug/ml 05/08/19 05/08/19 05/09/19 Range/Units 23:39 23:39 04:18 WBC 5.7 (5.0-10.0) 10^3/uL RBC 4.40 L (4.6-6.2) 10^6/uL Hgb 12.9 L (14.0-18.0) g/dL Hct 38.4 L (40.0-54.0) % MCV 87.3 (80-100) fL MCH 29.3 (27.0-34.0) pg MCHC 33.6 (33.0-35.0) g/dL Plt Count 137 L (150-450) 10^3/uL Sodium 138 (135-145) mmol/L Potassium 3.7 (3.6-5.0) mmol/L Chloride 104 (101-111) mmol/L Carbon Dioxide 26.0 (21.0-31.0) mmol/L Anion Gap 11.7 BUN 18 (7-18) mg/dL Creatinine 1.1 1.1 (0.6-1.3) mg/dL Est Cr Clr Drug Dosing 110.96 110.96 mL/min Estimated GFR (MDRD) > 60 > 60 BUN/Creatinine Ratio Glucose 84 (74-105) mg/dL Lactic Acid (0.5-2.0) mmol/L Calcium 8.3 L (8.4-10.2) mg/dl Phosphorus (2.5-4.6) mg/dL Magnesium (1.8-2.5) mg/dL Total Bilirubin (0.2-1.0) mg/dL AST (10-42) IU/L ALT (10-60) IU/L Alkaline Phosphatase (42-121) IU/L Total Protein (6.7-8.2) g/dl Albumin (3.2-5.5) g/dl Globulin Albumin/Globulin Ratio Urine Color (YELLOW) Urine Appearance (CLEAR) Urine pH (5.0-9.0) Ur Specific [place] (1.005-1.030) Urine Protein (NEGATIVE) Urine Glucose (UA) (NEGATIVE) Urine Ketones (NEGATIVE) Urine Occult Blood (NEGATIVE) Urine Nitrite (NEGATIVE) Urine Bilirubin (NEGATIVE) Urine Urobilinogen (0.2-1.0) mg/dL Ur Leukocyte Esterase (NEGATIVE) Urine RBC /HPF Urine WBC (0-5/HPF) /HPF Ur Epithelial Cells (NOT SEEN) /HPF Urine Bacteria (0-FEW/HPF) /HPF Urine Mucus (NOT SEEN) /LPF Vancomycin Trough 24.7 H (10-15) ug/ml 05/09/19 05/09/19 Range/Units 04:18 04:18 WBC 5.0 (5.0-10.0) 10^3/uL RBC 4.50 L (4.6-6.2) 10^6/uL Hgb 13.1 L (14.0-18.0) g/dL Hct 39.2 L (40.0-54.0) % MCV 87.1 (80-100) fL MCH 29.1 (27.0-34.0) pg MCHC 33.4 (33.0-35.0) g/dL Plt Count 142 L (150-450) 10^3/uL Sodium 139 (135-145) mmol/L Potassium 3.9 (3.6-5.0) mmol/L Chloride 106 (101-111) mmol/L Carbon Dioxide 27.0 (21.0-31.0) mmol/L Anion Gap 9.9 BUN 19 H (7-18) mg/dL Creatinine 1.2 (0.6-1.3) mg/dL Est Cr Clr Drug Dosing 101.71 mL/min Estimated GFR (MDRD) > 60 BUN/Creatinine Ratio 15.83 Glucose 85 (74-105) mg/dL Lactic Acid (0.5-2.0) mmol/L Calcium 8.4 (8.4-10.2) mg/dl Phosphorus 2.7 (2.5-4.6) mg/dL Magnesium 1.9 (1.8-2.5) mg/dL Total Bilirubin 1.8 H (0.2-1.0) mg/dL AST 15 (10-42) IU/L ALT 26 (10-60) IU/L Alkaline Phosphatase 55 (42-121) IU/L Total Protein 6.0 L (6.7-8.2) g/dl Albumin 3.4 (3.2-5.5) g/dl Globulin 2.6 Albumin/Globulin Ratio 1.31 Urine Color (YELLOW) Urine Appearance (CLEAR) Urine pH (5.0-9.0) Ur Specific [place] (1.005-1.030) Urine Protein (NEGATIVE) Urine Glucose (UA) (NEGATIVE) Urine Ketones (NEGATIVE) Urine Occult Blood (NEGATIVE) Urine Nitrite (NEGATIVE) Urine Bilirubin (NEGATIVE) Urine Urobilinogen (0.2-1.0) mg/dL Ur Leukocyte Esterase (NEGATIVE) Urine RBC /HPF Urine WBC (0-5/HPF) /HPF Ur Epithelial Cells (NOT SEEN) /HPF Urine Bacteria (0-FEW/HPF) /HPF Urine Mucus (NOT SEEN) /LPF Vancomycin Trough (10-15) ug/ml Matthew Results Last 24 Hours: Microbiology 05/07/19 17:37 Aerobic Blood Culture - Preliminary Blood - Venous - Lab Draw NO GROWTH AFTER 1 DAY Anaerobic Blood Culture - Preliminary NO GROWTH AFTER 1 DAY 05/07/19 17:30 Aerobic Blood Culture - Preliminary Blood - Venous NO GROWTH AFTER 1 DAY Anaerobic Blood Culture - Preliminary NO GROWTH AFTER 1 DAY Med Orders - Current: Current Medications Acetaminophen (Tylenol) 650 mg PO Q4H PRN PRN Reason: Pain (Mild 1-3)/fever Enoxaparin Sodium (Lovenox) 40 mg SUBCUT DAILY [facility] Last Admin: 05/08/19 09:07 Dose: 40 mg Famotidine (Pepcid) 20 mg IVPUSH BIDDIURETIC [facility] Lactated Ringer's (Ringers, Lactated) 1,000 mls @ 100 mls/hr IV ASDIRECTED [facility] Last Admin: 05/08/19 20:42 Dose: 100 mls/hr Piperacillin Sod/Tazobactam (Sod 3.375 gm/ Sodium Chloride) 100 mls @ 200 mls/ hr IV Q6H [facility] Last Infusion: 05/09/19 05:57 Dose: Infused Vancomycin HCl (Vancomycin 1.5 Gm/300 Ml Premix) 300 mls @ 200 mls/hr IV Q8H [facility] Ketorolac Tromethamine (Toradol) 30 mg IVPUSH Q8H PRN PRN Reason: Pain (moderate 4-6) Stop: 05/12/19 16:37 Last Admin: 05/08/19 21:18 Dose: 30 mg Morphine Sulfate (Morphine) 2 mg IVPUSH Q2H PRN PRN Reason: Pain (severe 7-10) Last Admin: 05/09/19 01:48 Dose: 2 mg Ondansetron HCl (Zofran Odt) 4 mg PO Q4H PRN PRN Reason: nausea, able to take PO Sodium Chloride (Saline Flush) 10 ml FLUSH ASDIRECTED PRN PRN Reason: Keep Vein Open Last Admin: 05/08/19 12:17 Dose: 10 ml Vancomycin HCl (Pharmacy To Dose - Vancomycin) 1 dose .XX ASDIRECTED [facility] Zolpidem Tartrate (Ambien) 5 mg PO BEDTIME PRN PRN Reason: Sleep Discontinued Medications Benzocaine/Menthol (Dermoplast Pain Relief [place]) 0 gm TOP ONETIME ONE Stop: 05/07/19 15:33 Last Admin: 05/07/19 16:40 Dose: Not Given Hydromorphone HCl (Dilaudid) 0.5 mg IVPUSH ONETIME ONE Stop: 05/07/19 09:24 Last Admin: 05/07/19 09:31 Dose: 0.5 mg Hydromorphone HCl (Dilaudid) 0.5 mg IVPUSH ONETIME ONE Stop: 05/07/19 10:42 Last Admin: 05/07/19 11:13 Dose: 0.5 mg Lactated Ringer's (Ringers, Lactated) 1,000 mls @ 999 mls/hr IV .BOLUS ONE Stop: 05/07/19 10:22 Last Infusion: 05/07/19 10:39 Dose: Infused Lactated Ringer's (Ringers, Lactated) 1,000 mls @ 999 mls/hr IV .BOLUS ONE Stop: 05/07/19 11:41 Last Admin: 05/07/19 11:13 Dose: 999 mls/hr Lactated Ringer's (Ringers, Lactated) 1,000 mls @ 999 mls/hr IV .BOLUS ONE Stop: 05/07/19 13:42 Last Admin: 05/07/19 12:46 Dose: 999 mls/hr Potassium Chloride 10 meq/ (Premix) 0 mls @ 100 mls/hr IV ONETIME ONE Stop: 05/07/19 16:50 Last Admin: 05/07/19 19:45 Dose: Not Given Potassium Chloride 10 meq/ (Premix) 100 mls @ 100 mls/hr IV ONETIME ONE Stop: 05/07/19 18:59 Last Infusion: 05/07/19 22:04 Dose: Infused Potassium Chloride 10 meq/ (Premix) 100 mls @ 100 mls/hr IV ONETIME ONE Stop: 05/07/19 20:59 Last Infusion: 05/07/19 22:05 Dose: Infused Magnesium Sulfate/Dextrose 2 (gm/ Premix) 200 mls @ 100 mls/hr IV ONETIME ONE Stop: 05/07/19 19:06 Last Infusion: 05/07/19 19:51 Dose: Infused Vancomycin HCl 2 gm/ Premix 400 mls @ 200 mls/hr IV Q8H [facility] Last Admin: 05/09/19 05:19 Dose: Not Given Iopamidol (Isovue-300 (61%)) 100 ml IVPUSH ONETIME ONE Stop: 05/07/19 11:17 Last Admin: 05/07/19 11:19 Dose: 100 ml Iopamidol (Isovue-300 (61%)) 50 ml IVPUSH ONETIME ONE Stop: 05/07/19 11:17 Last Admin: 05/07/19 11:19 Dose: 25 ml Ondansetron HCl (Zofran) 4 mg IV ONETIME ONE Stop: 05/07/19 09:24 Last Admin: 05/07/19 09:32 Dose: 4 mg Ondansetron HCl (Zofran) 4 mg IV ONETIME ONE Stop: 05/07/19 15:47 Last Admin: 05/07/19 16:56 Dose: 4 mg Sodium Chloride (Saline Flush) 10 ml FLUSH ASDIRECTED PRN PRN Reason: Keep Vein Open Last Admin: 05/07/19 09:37 Dose: 10 ml - Exam General: Alert, Oriented HEENT: Pupils Equal, Pupils Reactive, EOMI, Mucous Membr. Moist/[place] Neck: Supple Lungs: Clear to Auscultation, Normal Respiratory Effort Cardiovascular: Regular Rate, Regular Rhythm GI/Abdominal Exam: Soft, No Organomegaly, No Distention, No Mass, Tender (Male) Exam: Deferred Back Exam: Normal Inspection, Full Range of Motion Extremities: Normal Inspection, Normal Range of Motion, Non-Tender, No Pedal Edema, Normal Capillary Refill Skin: Warm, Dry, Intact Wound/Incisions: Other (No wounds) Neurological: No New Focal Deficit Psy/Mental Status: Alert, Normal Affect, Normal Mood Sepsis Event Note - Evaluation Sepsis Screening Result: No Definite Risk - Focused Exam Vital Signs: Vital Signs Temp Pulse Resp BP Pulse Ox 05/09/19 08:00 98.9 F 73 16 150/76 H 96 05/09/19 04:00 98.6 F 69 16 127/67 98 05/09/19 00:00 99.4 F 69 16 125/69 96 Date Exam was Performed: 05/09/19 Time Exam was Performed: 10:07 - Problem List Review Problem List Initiated/Reviewed/Updated: Yes - My Orders Last 24 Hours: My Active Orders 05/09/19 09:00 VANCOmycin/Water for INJ (PEG) [VANCOmycin 1.5 GM/300 ML Premix] 300 ml IV Q8H 05/09/19 09:40 Enema [RC] ASDIRECTED 05/09/19 09:45 Famotidine [Pepcid] 20 mg IVPUSH BIDDIURETIC 02/01/20 05:11 CBC W/O DIFF,HEMOGRAM [HEME] AM CMP [COMPREHENSIVE METABOLIC PN,CMP] [CHEM] AM MAGNESIUM [CHEM] AM 05/11/19 05:11 CMP [COMPREHENSIVE METABOLIC PN,CMP] [CHEM] AM - Plan Plan:: Acute Ileus Probable gastroenteritis Patient presented with intractable emesis, nausea, abdominal pain and en episode of loose stool. CT and XR of abdomen show moderate stool burden. Suspect food poisoning, viral gastroenteritis or severe constipation. - Continue NPO status - Continue NGT to LIS - Continue MIVF LR at 100 cc/h - Monitor and replace K>4 and Mg>2 - Serial abdominal exams as needed - Passed gas today. No BM yet. - Start Famotidine 20 mg IV BID due to NGT irritation Probable sepsis Patient with GI symptoms, went on to have fever of 101.1F, tachycardia of 103, leukocytosis of 13.4. - Blood culture NGTD - UA negative - Continue vancomycin and zosyn Constipation Patient reported history of frequent constipation. XR abdomen showed moderate stool burden. No BM yet since 05/06. - Soap suds enema Metabolic acidosis Bicarb of 22 in context of emesis with bicarb loss from GI tract. -Resolved Leukocytosis Wbc of 13.4. Likely due to dehydration vs early sepsis. - Resolved Elevated bilirubin Tbil of 2.1. Likely due to dehydration with emesis. - Trending down
[2019-05-09] MEDS: Lactated Ringers 1,000 ML IV SCH (10:18)
[2019-05-09] MEDS: Enoxaparin 40 MG/0.4 ML Syringe SUBCUT SCH (10:18)
[2019-05-09] MEDS: Famotidine 20 MG/2 ML SDV IVPUSH SCH ×2 (10:30→15:03)
[2019-05-09] MEDS ORDERED: Metoclopramide 10 MG/2 ML SDV IVPUSH PRN (18:04)
[2019-05-09] MEDS: Zolpidem 5 MG Tab PO PRN (23:57)
[2019-05-10] MEDS: Piperacillin/Tazobactam 3.375 GM in Sodium Chloride 0.9% 100 ML IV SCH ×4 (05:05→22:53)
[2019-05-10] MEDS: Lactated Ringers 1,000 ML IV SCH ×2 (05:08→18:08)
[2019-05-10 07:01] LABS: ANION GAP 13.9; CHLORIDE,CL 103 mmol/L (101-111); SODIUM,NA 137 mmol/L (135-145)
--- NOTE | 2019-05-10 09:21 | PCM.PN ---
- General Info Date of Service: 05/10/19 Admission Dx/Problem (Free Text): Admission Diagnosis/Problem Admission Diagnosis/Problem Ileus Subjective Update: Patient seen and examined this morning. Had large BM after enema yesterday evening. Patient has been passing gas since then. Functional Status: Reports: Pain Controlled - Review of Systems General: Reports: No Symptoms HEENT: Reports: No Symptoms Pulmonary: Reports: No Symptoms Cardiovascular: Reports: No Symptoms Gastrointestinal: Reports: Abdominal Pain Genitourinary: Reports: No Symptoms Musculoskeletal: Reports: No Symptoms Skin: Reports: No Symptoms Neurological: Reports: No Symptoms Psychiatric: Reports: No Symptoms - Patient Data Vitals - Most Recent: Last Vital Signs Temp 98.6 F 05/10/19 08:00 Pulse 66 05/10/19 08:00 Resp 20 05/10/19 08:00 BP 144/85 H 05/10/19 08:00 Pulse Ox 96 05/10/19 08:00 Weight - Most Recent: 296 lb I&O - Last 24 Hours: Intake & Output 05/09/19 05/10/19 05/10/19 22:59 06:59 14:59 Intake Total 30 Output Total 125 1000 Balance -125 -970 Lab Results Last 24 Hours: Laboratory Results - last 24 hr 05/10/19 05/10/19 05/10/19 Range/Units 06:00 06:00 08:43 WBC 6.1 (5.0-10.0) 10^3/uL RBC 4.60 (4.6-6.2) 10^6/uL Hgb 13.4 L (14.0-18.0) g/dL Hct 39.5 L (40.0-54.0) % MCV 85.9 (80-100) fL MCH 29.1 (27.0-34.0) pg MCHC 33.9 (33.0-35.0) g/dL Plt Count 166 (150-450) 10^3/uL Sodium 137 (135-145) mmol/L Potassium 3.9 (3.6-5.0) mmol/L Chloride 103 (101-111) mmol/L Carbon Dioxide 24.0 (21.0-31.0) mmol/L Anion Gap 13.9 BUN 15 (7-18) mg/dL Creatinine 1.2 (0.6-1.3) mg/dL Est Cr Clr Drug Dosing 101.71 mL/min Estimated GFR (MDRD) > 60 BUN/Creatinine Ratio 12.50 Glucose 82 (74-105) mg/dL Calcium 8.6 (8.4-10.2) mg/dl Magnesium 1.7 L (1.8-2.5) mg/dL Total Bilirubin 2.1 H (0.2-1.0) mg/dL AST 16 (10-42) IU/L ALT 24 (10-60) IU/L Alkaline Phosphatase 53 (42-121) IU/L Total Protein 6.4 L (6.7-8.2) g/dl Albumin 3.7 (3.2-5.5) g/dl Globulin 2.7 Albumin/Globulin Ratio 1.37 Vancomycin Trough 18.0 H (10-15) ug/ml Matthew Results Last 24 Hours: Microbiology 05/07/19 17:37 Aerobic Blood Culture - Preliminary Blood - Venous - Lab Draw NO GROWTH AFTER 2 DAYS Anaerobic Blood Culture - Preliminary NO GROWTH AFTER 2 DAYS 05/07/19 17:30 Aerobic Blood Culture - Preliminary Blood - Venous NO GROWTH AFTER 2 DAYS Anaerobic Blood Culture - Preliminary NO GROWTH AFTER 2 DAYS Med Orders - Current: Current Medications Acetaminophen (Tylenol) 650 mg PO Q4H PRN PRN Reason: Pain (Mild 1-3)/fever Enoxaparin Sodium (Lovenox) 40 mg SUBCUT DAILY [facility] Last Admin: 05/09/19 10:18 Dose: 40 mg Famotidine (Pepcid) 20 mg IVPUSH BIDDIURETIC [facility] Last Admin: 05/09/19 15:03 Dose: 20 mg Lactated Ringer's (Ringers, Lactated) 1,000 mls @ 100 mls/hr IV ASDIRECTED [facility] Last Admin: 05/10/19 05:08 Dose: 100 mls/hr Piperacillin Sod/Tazobactam (Sod 3.375 gm/ Sodium Chloride) 100 mls @ 200 mls/ hr IV Q6H [facility] Last Infusion: 05/10/19 05:49 Dose: Infused Ketorolac Tromethamine (Toradol) 30 mg IVPUSH Q8H PRN PRN Reason: Pain (moderate 4-6) Stop: 05/12/19 16:37 Last Admin: 05/08/19 21:18 Dose: 30 mg Metoclopramide HCl (Reglan) 4 mg IVPUSH Q6H PRN PRN Reason: Nausea/Vomiting Morphine Sulfate (Morphine) 2 mg IVPUSH Q2H PRN PRN Reason: Pain (severe 7-10) Last Admin: 05/09/19 01:48 Dose: 2 mg Ondansetron HCl (Zofran Odt) 4 mg PO Q4H PRN PRN Reason: nausea, able to take PO Sodium Chloride (Saline Flush) 10 ml FLUSH ASDIRECTED PRN PRN Reason: Keep Vein Open Last Admin: 05/08/19 12:17 Dose: 10 ml Vancomycin HCl (Pharmacy To Dose - Vancomycin) 1 dose .XX ASDIRECTED DEBRA Zolpidem Tartrate (Ambien) 5 mg PO BEDTIME PRN PRN Reason: Sleep Last Admin: 05/09/19 23:57 Dose: 5 mg Discontinued Medications Benzocaine/Menthol (Dermoplast Pain Relief [place]) 0 gm TOP ONETIME ONE Stop: 05/07/19 15:33 Last Admin: 05/07/19 16:40 Dose: Not Given Hydromorphone HCl (Dilaudid) 0.5 mg IVPUSH ONETIME ONE Stop: 05/07/19 09:24 Last Admin: 05/07/19 09:31 Dose: 0.5 mg Hydromorphone HCl (Dilaudid) 0.5 mg IVPUSH ONETIME ONE Stop: 05/07/19 10:42 Last Admin: 05/07/19 11:13 Dose: 0.5 mg Lactated Ringer's (Ringers, Lactated) 1,000 mls @ 999 mls/hr IV .BOLUS ONE Stop: 05/07/19 10:22 Last Infusion: 05/07/19 10:39 Dose: Infused Lactated Ringer's (Ringers, Lactated) 1,000 mls @ 999 mls/hr IV .BOLUS ONE Stop: 05/07/19 11:41 Last Admin: 05/07/19 11:13 Dose: 999 mls/hr Lactated Ringer's (Ringers, Lactated) 1,000 mls @ 999 mls/hr IV .BOLUS ONE Stop: 05/07/19 13:42 Last Admin: 05/07/19 12:46 Dose: 999 mls/hr Potassium Chloride 10 meq/ (Premix) 0 mls @ 100 mls/hr IV ONETIME ONE Stop: 05/07/19 16:50 Last Admin: 05/07/19 19:45 Dose: Not Given Potassium Chloride 10 meq/ (Premix) 100 mls @ 100 mls/hr IV ONETIME ONE Stop: 05/07/19 18:59 Last Infusion: 05/07/19 22:04 Dose: Infused Potassium Chloride 10 meq/ (Premix) 100 mls @ 100 mls/hr IV ONETIME ONE Stop: 05/07/19 20:59 Last Infusion: 05/07/19 22:05 Dose: Infused Magnesium Sulfate/Dextrose 2 (gm/ Premix) 200 mls @ 100 mls/hr IV ONETIME ONE Stop: 05/07/19 19:06 Last Infusion: 05/07/19 19:51 Dose: Infused Vancomycin HCl 2 gm/ Premix 400 mls @ 200 mls/hr IV Q8H [facility] Last Admin: 05/09/19 05:19 Dose: Not Given Vancomycin HCl (Vancomycin 1.5 Gm/300 Ml Premix) 300 mls @ 200 mls/hr IV Q8H [facility] Last Infusion: 05/10/19 02:30 Dose: Infused Iopamidol (Isovue-300 (61%)) 100 ml IVPUSH ONETIME ONE Stop: 05/07/19 11:17 Last Admin: 05/07/19 11:19 Dose: 100 ml Iopamidol (Isovue-300 (61%)) 50 ml IVPUSH ONETIME ONE Stop: 05/07/19 11:17 Last Admin: 05/07/19 11:19 Dose: 25 ml Ondansetron HCl (Zofran) 4 mg IV ONETIME ONE Stop: 05/07/19 09:24 Last Admin: 05/07/19 09:32 Dose: 4 mg Ondansetron HCl (Zofran) 4 mg IV ONETIME ONE Stop: 05/07/19 15:47 Last Admin: 05/07/19 16:56 Dose: 4 mg Sodium Chloride (Saline Flush) 10 ml FLUSH ASDIRECTED PRN PRN Reason: Keep Vein Open Last Admin: 05/07/19 09:37 Dose: 10 ml - Exam General: Alert, Oriented HEENT: Pupils Equal, Pupils Reactive, EOMI, Mucous Membr. Moist/[place] Neck: Supple Lungs: Clear to Auscultation, Normal Respiratory Effort Cardiovascular: Regular Rate, Regular Rhythm GI/Abdominal Exam: Normal Bowel Sounds, Soft, Non-Tender, No Organomegaly, No Distention, No Abnormal Bruit, No Mass, Pelvis Stable (Male) Exam: Deferred Back Exam: Normal Inspection, Full Range of Motion Extremities: Normal Inspection, Normal Range of Motion, Non-Tender, No Pedal Edema, Normal Capillary Refill Skin: Warm, Dry, Intact Neurological: No New Focal Deficit Psy/Mental Status: Alert, Normal Affect, Normal Mood Sepsis Event Note - Evaluation Sepsis Screening Result: No Definite Risk - Focused Exam Vital Signs: Vital Signs Temp Pulse Resp BP BP Pulse Ox 05/10/19 08:00 98.6 F 66 20 144/85 H 96 05/10/19 04:00 98.9 F 70 18 155/69 H 95 Date Exam was Performed: 05/10/19 Time Exam was Performed: 09:15 - Problem List Review Problem List Initiated/Reviewed/Updated: Yes - My Orders Last 24 Hours: My Active Orders 05/09/19 09:40 Enema [RC] ASDIRECTED 05/09/19 09:45 Famotidine [Pepcid] 20 mg IVPUSH BIDDIURETIC 05/09/19 18:04 Metoclopramide [Reglan] 4 mg IVPUSH Q6H PRN 05/10/19 Lunch Full Liquid Diet [DIET] 05/11/19 05:11 CMP [COMPREHENSIVE METABOLIC PN,CMP] [CHEM] AM - Plan Plan:: Acute Ileus Probable gastroenteritis Patient presented with intractable emesis, nausea, abdominal pain and en episode of loose stool. CT and XR of abdomen show moderate stool burden. Suspect food poisoning, viral gastroenteritis or severe constipation. - Start full liquid diet - Clamp NGT - Continue MIVF LR at 100 cc/h - Monitor and replace K>4 and Mg>2 - Serial abdominal exams as needed -Passing gas after large BM post enema - Ciontinue Famotidine 20 mg IV BID due to NGT irritation Probable sepsis Patient with GI symptoms, went on to have fever of 101.1F, tachycardia of 103, leukocytosis of 13.4. - Blood culture NGTD - UA negative - Discontinue vancomycin - Continue zosyn Constipation Patient reported history of frequent constipation. XR abdomen showed moderate stool burden. - Large stool output after enema - Soap suds enema as needed Metabolic acidosis Bicarb was 22 in context of emesis with bicarb loss from GI tract. -Resolved Leukocytosis Wbc of 13.4. Likely due to dehydration vs early sepsis. - Resolved Elevated bilirubin Tbil of 2.1. Likely due to dehydration with emesis. - Stable today - Will consider ultrasound RUQ if persistent
[2019-05-10] MEDS: Famotidine 20 MG/2 ML SDV IVPUSH SCH ×2 (09:31→15:24)
[2019-05-10] MEDS: Enoxaparin 40 MG/0.4 ML Syringe SUBCUT SCH (09:32)
[2019-05-10] MEDS ORDERED: Lidocaine 2% Viscous Solution 15 ML Cup PO PRN (10:53)
[2019-05-10] MEDS: Zolpidem 5 MG Tab PO PRN (22:54)
[2019-05-11] MEDS: Piperacillin/Tazobactam 3.375 GM in Sodium Chloride 0.9% 100 ML IV SCH ×2 (05:40→13:02)
[2019-05-11] MEDS: Lactated Ringers 1,000 ML IV SCH (05:41)
[2019-05-11 07:19] LABS: ANION GAP 10.1; CHLORIDE,CL 106 mmol/L (101-111); SODIUM,NA 140 mmol/L (135-145)
[2019-05-11] MEDS: Famotidine 20 MG/2 ML SDV IVPUSH SCH (09:06)
[2019-05-11] MEDS: Sodium Chloride 0.9% 10 ML Syringe FLUSH PRN (09:07)
[2019-05-11] MEDS: Enoxaparin 40 MG/0.4 ML Syringe SUBCUT SCH (09:09)
--- NOTE | 2019-05-11 10:38 | PCM.DCSUM1 ---
Discharge Summary - Hospital Course Free Text/Narrative:: Patient is a 34 y.o. male with no significant past medical history who presented with acute onset intractable nausea and emesis, associated with abdominal pain and one episode of loose stools that started the night before. Labs were remarkable for mild leukocytosis of 13.4 and bilirubin of 2.1. Initial vitals wnl except for tachycardia at 100. Abdominal XR showed colonic air fluid levels and CT revealed moderate stool burden but no obstruction or transition point. Overnight, patient on to have fever of 101.1F and tachycardia of 103 with tachypnea of 20. Patient had NG tube passed for decompression, electrolytes replaced, and maintenance IVF. He also received vancomycin and zosyn for probable sepsis. He had enema administered with subsequent slow return of bowel function. Discharge diagnoses Acute Ileus Acute gastroenteritis Probable sepsis Constipation Metabolic acidosis Leukocytosis Elevated bilirubin - Discharge Data Discharge Date: 05/11/19 Discharge Disposition: Home, Self-Care 01 Condition: Good - Referral to Home Health Primary Care Physician: Red Mckinley MD - Discharge Plan *PRESCRIPTION DRUG MONITORING PROGRAM REVIEWED*: Not Applicable *COPY OF PRESCRIPTION DRUG MONITORING REPORT IN PATIENT MARYANA: Not Applicable Prescriptions/Med Rec: Levofloxacin 500 mg PO DAILY #3 tablet Home Medications: Home Meds Levofloxacin 500 mg PO DAILY #3 tablet 05/11/19 [Rx] - Discharge Summary/Plan Comment DC Time >30 min.: No - General Info Admission Dx/Problem (Free Text: Admission Diagnosis/Problem Admission Diagnosis/Problem Ileus Functional Status: Reports: Pain Controlled - Review of Systems General: Reports: No Symptoms HEENT: Reports: No Symptoms Pulmonary: Reports: No Symptoms Cardiovascular: Reports: No Symptoms Gastrointestinal: Reports: No Symptoms Genitourinary: Reports: No Symptoms Musculoskeletal: Reports: No Symptoms Skin: Reports: No Symptoms Neurological: Reports: No Symptoms Psychiatric: Reports: No Symptoms - Patient Data Vitals - Most Recent: Last Vital Signs Temp 99.4 F 05/11/19 08:00 Pulse 52 L 05/11/19 08:00 Resp 16 05/11/19 08:00 BP 122/65 05/11/19 08:00 Pulse Ox 96 05/11/19 08:00 Weight - Most Recent: 296 lb I&O - Last 24 hours: Intake & Output 05/10/19 05/11/19 05/11/19 22:59 06:59 14:59 Intake Total 650 Balance 650 Lab Results - Last 24 hrs: Laboratory Results - last 24 hr 05/11/19 Range/Units 06:03 Sodium 140 (135-145) mmol/L Potassium 4.1 (3.6-5.0) mmol/L Chloride 106 (101-111) mmol/L Carbon Dioxide 28.0 (21.0-31.0) mmol/L Anion Gap 10.1 BUN 8 (7-18) mg/dL Creatinine 1.2 (0.6-1.3) mg/dL Est Cr Clr Drug Dosing 101.71 mL/min Estimated GFR (MDRD) > 60 BUN/Creatinine Ratio 6.66 Glucose 96 (74-105) mg/dL Calcium 8.9 (8.4-10.2) mg/dl Total Bilirubin 1.4 H (0.2-1.0) mg/dL AST 25 (10-42) IU/L ALT 41 (10-60) IU/L Alkaline Phosphatase 50 (42-121) IU/L Total Protein 6.4 L (6.7-8.2) g/dl Albumin 3.5 (3.2-5.5) g/dl Globulin 2.9 Albumin/Globulin Ratio 1.21 LATANYA Results - Last 24 hrs: Microbiology 05/07/19 17:37 Aerobic Blood Culture - Preliminary Blood - Venous - Lab Draw NO GROWTH AFTER 3 DAYS Anaerobic Blood Culture - Preliminary NO GROWTH AFTER 3 DAYS 05/07/19 17:30 Aerobic Blood Culture - Preliminary Blood - Venous NO GROWTH AFTER 3 DAYS Anaerobic Blood Culture - Preliminary NO GROWTH AFTER 3 DAYS Med Orders - Current: Current Medications Acetaminophen (Tylenol) 650 mg PO Q4H PRN PRN Reason: Pain (Mild 1-3)/fever Enoxaparin Sodium (Lovenox) 40 mg SUBCUT DAILY [facility] Last Admin: 05/11/19 09:09 Dose: Not Given Famotidine (Pepcid) 20 mg IVPUSH BIDDIURETIC [facility] Last Admin: 05/11/19 09:06 Dose: 20 mg Lactated Ringer's (Ringers, Lactated) 1,000 mls @ 100 mls/hr IV ASDIRECTED [facility] Last Admin: 05/11/19 05:41 Dose: 100 mls/hr Piperacillin Sod/Tazobactam (Sod 3.375 gm/ Sodium Chloride) 100 mls @ 200 mls/ hr IV Q6H [facility] Last Infusion: 05/11/19 06:36 Dose: Infused Ketorolac Tromethamine (Toradol) 30 mg IVPUSH Q8H PRN PRN Reason: Pain (moderate 4-6) Stop: 05/12/19 16:37 Last Admin: 05/08/19 21:18 Dose: 30 mg Lidocaine HCl (Xylocaine 2% Viscous) 15 ml PO Q6H PRN PRN Reason: Dyspepsia Metoclopramide HCl (Reglan) 4 mg IVPUSH Q6H PRN PRN Reason: Nausea/Vomiting Morphine Sulfate (Morphine) 2 mg IVPUSH Q2H PRN PRN Reason: Pain (severe 7-10) Last Admin: 05/09/19 01:48 Dose: 2 mg Ondansetron HCl (Zofran Odt) 4 mg PO Q4H PRN PRN Reason: nausea, able to take PO Sodium Chloride (Saline Flush) 10 ml FLUSH ASDIRECTED PRN PRN Reason: Keep Vein Open Last Admin: 05/11/19 09:07 Dose: 10 ml Zolpidem Tartrate (Ambien) 5 mg PO BEDTIME PRN PRN Reason: Sleep Last Admin: 05/10/19 22:54 Dose: 5 mg Discontinued Medications Benzocaine/Menthol (Dermoplast Pain Relief [place]) 0 gm TOP ONETIME ONE Stop: 05/07/19 15:33 Last Admin: 05/07/19 16:40 Dose: Not Given Hydromorphone HCl (Dilaudid) 0.5 mg IVPUSH ONETIME ONE Stop: 05/07/19 09:24 Last Admin: 05/07/19 09:31 Dose: 0.5 mg Hydromorphone HCl (Dilaudid) 0.5 mg IVPUSH ONETIME ONE Stop: 05/07/19 10:42 Last Admin: 05/07/19 11:13 Dose: 0.5 mg Lactated Ringer's (Ringers, Lactated) 1,000 mls @ 999 mls/hr IV .BOLUS ONE Stop: 05/07/19 10:22 Last Infusion: 05/07/19 10:39 Dose: Infused Lactated Ringer's (Ringers, Lactated) 1,000 mls @ 999 mls/hr IV .BOLUS ONE Stop: 05/07/19 11:41 Last Admin: 05/07/19 11:13 Dose: 999 mls/hr Lactated Ringer's (Ringers, Lactated) 1,000 mls @ 999 mls/hr IV .BOLUS ONE Stop: 05/07/19 13:42 Last Admin: 05/07/19 12:46 Dose: 999 mls/hr Potassium Chloride 10 meq/ (Premix) 0 mls @ 100 mls/hr IV ONETIME ONE Stop: 05/07/19 16:50 Last Admin: 05/07/19 19:45 Dose: Not Given Potassium Chloride 10 meq/ (Premix) 100 mls @ 100 mls/hr IV ONETIME ONE Stop: 05/07/19 18:59 Last Infusion: 05/07/19 22:04 Dose: Infused Potassium Chloride 10 meq/ (Premix) 100 mls @ 100 mls/hr IV ONETIME ONE Stop: 05/07/19 20:59 Last Infusion: 05/07/19 22:05 Dose: Infused Magnesium Sulfate/Dextrose 2 (gm/ Premix) 200 mls @ 100 mls/hr IV ONETIME ONE Stop: 05/07/19 19:06 Last Infusion: 05/07/19 19:51 Dose: Infused Vancomycin HCl 2 gm/ Premix 400 mls @ 200 mls/hr IV Q8H [facility] Last Admin: 05/09/19 05:19 Dose: Not Given Vancomycin HCl (Vancomycin 1.5 Gm/300 Ml Premix) 300 mls @ 200 mls/hr IV Q8H [facility] Last Admin: 05/10/19 10:58 Dose: Not Given Iopamidol (Isovue-300 (61%)) 100 ml IVPUSH ONETIME ONE Stop: 05/07/19 11:17 Last Admin: 05/07/19 11:19 Dose: 100 ml Iopamidol (Isovue-300 (61%)) 50 ml IVPUSH ONETIME ONE Stop: 05/07/19 11:17 Last Admin: 05/07/19 11:19 Dose: 25 ml Ondansetron HCl (Zofran) 4 mg IV ONETIME ONE Stop: 05/07/19 09:24 Last Admin: 05/07/19 09:32 Dose: 4 mg Ondansetron HCl (Zofran) 4 mg IV ONETIME ONE Stop: 05/07/19 15:47 Last Admin: 05/07/19 16:56 Dose: 4 mg Sodium Chloride (Saline Flush) 10 ml FLUSH ASDIRECTED PRN PRN Reason: Keep Vein Open Last Admin: 05/07/19 09:37 Dose: 10 ml Vancomycin HCl (Pharmacy To Dose - Vancomycin) 1 dose .XX ASDIRECTED DEBRA - Exam General: Reports: Alert, Oriented HEENT: Reports: Pupils Equal, Pupils Reactive, EOMI, Mucous Membr. Moist/[place] Neck: Reports: Supple Lungs: Reports: Clear to Auscultation, Normal Respiratory Effort Cardiovascular: Reports: Regular Rate, Regular Rhythm GI/Abdominal Exam: Normal Bowel Sounds, Soft, Non-Tender, No Organomegaly, No Distention, No Abnormal Bruit, No Mass, Pelvis Stable (Male) Exam: Deferred Rectal (Males) Exam: Deferred Back Exam: Reports: Normal Inspection, Full Range of Motion Extremities: Normal Inspection, Normal Range of Motion, Non-Tender, No Pedal Edema, Normal Capillary Refill Skin: Reports: Warm, Dry, Intact Neurological: Reports: No New Focal Deficit Psy/Mental Status: Reports: Alert, Normal Affect, Normal Mood
== END 2019-05-11 11:48 | disposition home or self-care (01) ==
LOC: DL.ED 09:12 → DL.MS 15:52 → UNDOADMOB 15:55 → DL.MS 15:55
PROVIDERS: ADMIT Internal Medicine; ATTEND Internal Medicine
DX: K56.7 Ileus, unspecified (principal); K52.9 Noninfective gastroenteritis and colitis, unspecified; E87.2 Acidosis; E86.0 Dehydration; K59.00 Constipation, unspecified; R79.89 Other specified abnormal findings of blood chemistry; Z88.2 Allergy status to sulfonamides; Z88.1 Allergy status to other antibiotic agents
CPT/HCPCS: 36415; 43752; 74019; 74177; 80048; 80053; 80202; 81001; 82248; 82565; 83605; 83690; 83735; 84100; 85025; 85027; 87040; 96361; 96365; 96366; 96367; 96368; 96372; 96374; 96375; 96376; 99284; 99285-25; A9270-GY; G0378; J1170; J1650; J1885; J2270; J2405; J2543; J3370; J3475; J3480; J3490; J7050; J7120; Q9967

== ENCOUNTER 2021-05-30 12:08 | Emergency (ER) | payer SELFPAY | END 2021-05-30 16:08 | disposition left against medical advice (07) | LOC: DL.ED 12:08 | DX: S39.92XA Unspecified injury of lower back, initial encounter (principal); Z53.21 Procedure and treatment not carried out due to patient leaving prior to being seen by health care provider ==